=== PATIENT | female | born 1990 | race American Indian/Alaskan Native ===

== ENCOUNTER 2017-01-08 17:21 | Outpatient (CLI) | payer BC ==
--- NOTE | 2017-01-11 12:23 | Magnetic Resonance Report ---
MR LOWER EXTREMITY JOINT RIGHT WITHOUT CONTRAST HISTORY: Right ankle pain. TECHNIQUE: Multiple T1 and T2-weighted images with and without fat suppression. Sagittal STIR imaging. No IV contrast. COMPARISON: None at this facility. FINDINGS: There is mild nonspecific anterior and lateral soft tissue swelling/edema. The bone marrow signal is within normal limits. Minimal osteoarthritic changes are noted in the midfoot. No advanced joint pathology. No fracture or bone lesion. I cannot confidently identify an intact anterior talofibular ligament or calcaneofibular ligament. The ligaments appear to be ruptured. The anterior and posterior tibiofibular ligaments, interosseous membrane, posterior talofibular ligament and superficial/deep deltoid ligaments are identified and appear intact. There is a small joint effusion which extends to the anterolateral joint space. The Achilles tendon, peroneal tendons, anterior tibial tendon, and medial tendon complex are intact and demonstrate normal signal. No evidence for tendinopathy, tenosynovitis or rupture. IMPRESSION: Rupture of the anterior talofibular ligament and calcaneofibular ligament are suspected. See above. Soft tissue swelling/edema. Small joint effusion. 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
== END 2017-01-08 17:22 | disposition home or self-care (01) ==
LOC: MRI 17:21
DX: M19.071 Primary osteoarthritis, right ankle and foot (principal)
CPT/HCPCS: 73721

== ENCOUNTER 2017-04-29 09:55 | Outpatient (CLI) | payer BC ==
[2017-04-29 11:31] LABS: HIV-1 Antigen p24 Non React (Non React); HIVR-1/2 Ab Non React (Non React)
== END 2017-04-29 09:56 | disposition home or self-care (01) ==
LOC: LAB 09:55
PROVIDERS: ATTEND Obstetrics & Gynecology
DX: Z01.419 Encounter for gynecological examination (general) (routine) without abnormal findings (principal); A54.9 Gonococcal infection, unspecified; A74.89 Other chlamydial diseases; N92.6 Irregular menstruation, unspecified; E66.9 Obesity, unspecified; Z71.89 Other specified counseling; Z86.19 Personal history of other infectious and parasitic diseases
CPT/HCPCS: 36415; 80074; 83001; 83036; 84443; 86592; 87529; 87806